=== PATIENT | male | born 2000 | race Caucasian/White ===

== ENCOUNTER 2025-03-27 21:07 | Emergency (ER) | payer MEDICAID, SELFPAY ==
[2025-03-27 21:07] VITALS: BMI 21.8
[2025-03-27 21:13] VITALS: BP 150/80; PULSE 85; RESP 20; TEMP 36.5; O2SAT 100
--- NOTE | 2025-03-27 21:13 | EKG_ITS ---
[facility] Test Date: 2025-03-27 Pat Name: HOLLI ANDREA Department: Room: - Gender: Male Patient Placement Coordinator: : 2000 Requested By: ED Temporary Provider Order Number: [id number] Reading MD: ED Temporary Provider Measurements Intervals [place] Rate: 73 P: 69 HI: 136 QRS: 65 QRSD: 104 T: 44 QT: 352 QTc: 389 Interpretive Statements SINUS RHYTHM POSSIBLE RIGHT VENTRICULAR CONDUCTION DELAY [RSR (QR) IN V1/V2] Compared to ECG 10/06/2023 11:18:20 Short HI interval no longer present /store/S0/[id number].pdf
[2025-03-27 21:15] VITALS: BMI 23.1
--- NOTE | 2025-03-27 22:56 | XR_ITS ---
Examination: AP lateral chest 2 views Technique: Upright AP lateral chest 2 views Date and time: March 27, 2012 2025, 1110 hrs. Indications: Chest pain beginning one hour ago. Findings: Severe pectus deformity accentuates the left ventricle and the hilar vascular markings No pneumonia or pulmonary edema The osseous structures are intact Impression: No pneumonia or pulmonary edema
--- NOTE | 2025-03-27 22:58 | EDNOTE_ITS ---
ED Chest Pain RME/HPI General Chief Complaint: Chest Pain Stated Complaint: CHEST PRESSURE X 30MINS Time Seen by Provider: 03/27/25 21:44 Arrival date/time: 03/27/25 21:07 24-year-old male with a history of anxiety GERD and MVP reports with complaints of chest pain that radiates to his throat and his back x 1 hour. Patient also complains of some mild nausea but no vomiting no shortness of breath no fever chills cough congestion diarrhea constipation weakness or fatigue. Patient states that he is currently on antidepressives and anxiety medications daily but he reports he has not taken any medications for GERD in several months. He denies any use of illicit substances or tobacco products and states that he has not taken any other medications for his symptoms today Limitations: no limitations Related Data Previous Rx's ?Medication ?Instructions ?Recorded Sulfamethoxazole/Trimethoprim DS * 1 tab PO BID #20 ta bs 01/15/17 (BACTRIM DS *) pantoprazole 40 mg tablet,delayed 40 mg PO QDAY #30 ta bs 03/28/25 release Allergies Allergy/AdvReac Type Severity Reaction Status Date / Time amoxicillin Allergy Unknown ABD Verified 10/06/23 11:06 CRAMPING/RASH azithromycin Allergy Unknown ABD Verified 10/06/23 11:06 CRAMPING/RASH POTASSIUM CLAVULANATE Allergy Unknown ABD Uncoded 03/24/09 15:06 CRAMOING/RASH Review of Systems Constitutional Constitutional: Denies chills, Denies fever(s) and Denies headache(s) ENT Ears, Nose, Mouth, and Throat: Denies dizziness, Denies headache(s), Denies neck pain and Denies sore throat Cardiovascular Cardiovascular: Reports chest pain, Denies claudication, Denies dyspnea, Denies edema, Denies irregular heart rhythm and Denies syncope Respiratory Respiratory: Denies cough and Denies dyspnea Gastrointestinal Gastrointestinal: Reports abdominal pain, Reports nausea and Denies vomiting Musculoskeletal Musculoskeletal: Reports back pain and Denies neck pain Neurologic Neurologic: Denies dizziness, Denies headache(s) and Denies syncope Psychiatric Psychiatric: Reports anxiety, Reports depression, Denies homicidal ideation and Denies suicidal ideation Past Medical History Past Medical History NEUROLOGIC: Negative Neurological Disorders CARDIAC: Negative Cardiac Disorders GASTROINTESTINAL: Negative Gastrointestinal Disorders Social History SMOKING STATUS: Never smoker ED Exam General Limitations: Present no limitations General appearance: Present alert and in no apparent distress Neck Neck exam: Present normal inspection, full ROM and trachea midline Chest Chest inspection: Present symmetric chest wall rise; Absent normal inspection (pectus excavatum) or tenderness Respiratory Respiratory exam: Present normal lung sounds bilaterally Cardiovascular Cardiovascular exam: Present regular rate, normal rhythm and normal heart sounds Abdominal Exam Abdominal exam: Present soft and normal bowel sounds Extremities Exam Extremities exam: Present normal inspection and full ROM Back Exam Back exam: Present normal inspection and full ROM Neurological Exam Neurological exam: Present alert, oriented X3 and CN II-XII intact Psychiatric Psychiatric exam: Present normal affect and normal mood Skin Skin exam: Present warm, dry, intact and normal color Course Course Course Narrative: 18 show male with a history of MVP, anxiety, GERD reports with complaints of chest pain that radiates to throat and back. Patient is EKG normal sinus rhythm no STEMI or ischemia noted chest x-ray is without traits or opacities troponin test is negative. Differential diagnosis includes anxiety versus GERD versus muscle skeletal pain. 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 Patient is also advised that his symptoms should worsen return to the ED Quality Measures none Orders Category Date Time Status EKG (ED ONLY) *Do not use* NOW Care 03/27/25 21:13 Completed EKG (ED Only) Stat Exams 03/27/25 21:13 Draft XR chest 2V Stat Exams 03/27/25 22:56 Completed CBC Stat Lab 03/27/25 23:10 Completed CMP [Comprehensive Metabolic Panel] Stat Lab 03/27/25 23:10 Completed Troponin I Stat Lab 03/27/25 23:10 Completed Vital Signs Vital signs: Vital Signs Temperature 97.7 F 03/27/25 21:13 Pulse Rate 85 03/27/25 21:13 Respiratory Rate 20 03/27/25 21:13 Blood Pressure 150/80 H 03/27/25 21:13 Pulse Oximetry (%) 100 03/27/25 21:13 Oxygen Delivery Method Room Air 03/27/25 21:13 PROCEDURES: EKG Interpretation #1: EKG Impression: Normal sinus rhythm, No acute ST-T changes and No ischemic changes Chest Pain Patient data External records reviewed:: None Clinical information provided by:: patient Social determinants that could affect healthcare access:: none Patient has the following chronic illnesses:: none How is presenting disease/condition affected by chronic disease/condition?: no chronic disease Evaluation data The following diagnostics were reviewed and interpreted by me:: lab results and radiology exam(s) Lab and/or radiology exams considered but not ordered:: none Interpretation Summary: Negative for evidence of a cardiac event Medications / Prescriptions Medications or Prescriptions considered but not ordered:: none Medication administrations:: none Consultations Consultation(s) initiated? (list below): No Diagnosis Most likely diagnosis given after review of the tests above:: Anxiety versus GERD versus muscle skeletal pain Admission Indicated Admission indicated?: not indicated Explain why admission is indicated or not indicated:: Anxiety and GERD Admission Request Was there a request for admission?: No Disposition Plan Disposition Plan: Discharge Discharge Attestation Discharge Attestation: The patient and all family members were given an opportunity to ask questions and understood the discharge instructions. Discharge instructions specifically effects, indications for sooner follow up or return to the emergency department, and the expected course of current diagnosis. Patient condition: Stable Discharge Plan Plan Patient Disposition: HOME (Self Care) Prescriptions/Referrals Prescriptions/Med Rec: New pantoprazole 40 mg tablet,delayed release (DR/EC) 40 mg PO QDAY Qty: 30 0RF No Action Sulfamethoxazole/Trimethoprim DS * (BACTRIM DS *) 1 TAB tablet 1 tab PO BID Qty: 20 0RF Referrals: Temporary Provider,ED [Physician, Emergency Medicine] - In 1 week Problem List Clinical Impression: Chest pain due to GERD, Anxiety Patient/Caregiver Discharge Instructions Discharge Activity: activity as tolerated Education Materials: ED Anxiety Reaction, ED GERD (Adult) Additional Instructions: Your symptoms could be caused by GERD and your anxiety you should take the medications as directed monitor your diet for items that may cause your GERD to worsen and follow-up with your primary care provider in 24 to 48 hours for your anxiety and GERD Print Language: [place] Stand Alone Forms: [facility] Award Info., Patient Portal Info Letter
[2025-03-27 23:19] LABS: Basophils # (Auto) 0.1 Thou/mm3 (0.0-0.2); Basophils % (Auto) 1 % (0-2.5); Eosinophils # (Auto) 0.3 Thou/mm3 (0.0-0.5); Eosinophils % (Auto) 2 % (0-10); Hematocrit 41.3 % (41.0-53.0); Hemoglobin 13.8 g/dL (13.5-16.0); Immature Granulocytes Auto 0.03 Thou/mm3 (0.00-0.00); Lymphocytes # (Auto) 1.8 Thou/mm3 (1.0-4.8); Lymphocytes % (Auto) 14 % (10-50); Mean Corpuscular HGB Conc 33.4 g/dl (31.0-37.0); Mean Corpuscular Hemoglobin 29.4 pg (25.0-35.0); Mean Corpuscular Volume 88 fL (80-100); Monocytes # (Auto) 1.1 Thou/mm3 (0.0-0.8); Monocytes % (Auto) 9 % (0-12); Neutrophils # (Auto) 9.4 Thou/mm3 (1.8-7.7); Neutrophils % (Auto) 74 % (37-80); Nucleated Red Blood Cell # 0.00 Thou/mm3 (0.00-0.00); Nucleated Red Blood Cell % 0 /100 WBC (0); Platelet Count 281 Thou/mm3 (140-440); RDW Standard Deviation 42.5 fL (35.1-43.9); Red Blood Count 4.69 Miln/mm3 (4.50-5.90); White Blood Count 12.7 Thou/mm3 (3.8-10.6)
[2025-03-27 23:38] LABS: Alanine Aminotransferase 27 U/L (10-49); Albumin, Serum 4.8 gm/dL (3.5-5.0); Albumin/Globulin Ratio 1.8 (1.2-2.2); Alkaline Phosphatase 69 U/L (46-116); Anion Gap 10 (7-16); Aspartate Amino Transferase 20 U/L (0-34); BUN/Creatinine Ratio 10 Ratio (12-20); Bilirubin,Total 0.5 mg/dL (0.3-1.2); Blood Urea Nitrogen 9 mg/dL (9-23); Calcium 9.6 mg/dL (8.3-10.6); Calcium (Corrected) 9.6 mg/dL (8.5-10.1); Carbon Dioxide 27.4 mMol/L (20.0-31.0); Chloride 102 mMol/L (98-107); Creatinine (Component) 0.9 mg/dL (0.6-1.3); Estimated Creatinine Clearance 143.6 mL/min (>60); Globulin 2.7 gm/dL (2.3-3.5); Glucose 102 mg/dL (74-106); Osmolality,Calculated 276 (275-295); Potassium 3.8 mMol/L (3.4-5.1); Sodium 139 mMol/L (136-145); Total Protein 7.5 gm/dL (5.7-8.2); Troponin I < 0.002 ng/mL (0.0-0.045); eGFR > 60 See Note
[2025-03-28 01:29] VITALS: BP 132/81; PULSE 71; RESP 16; TEMP 36.6; O2SAT 98
== END 2025-03-28 01:36 | disposition home or self-care (01) ==
PROVIDERS: Physician Assistant; Emergency Provider Emergency Medicine; PCP Internal Medicine
DX: K21.9 Gastro-esophageal reflux disease without esophagitis (principal); F41.9 Anxiety disorder, unspecified; R94.31 Abnormal electrocardiogram [ECG] [EKG]
CPT/HCPCS: 36415; 71046; 80053; 84484; 85025; 93005; 99283